=== PATIENT | female | born 1965 | race Hispanic/Latino ===

== ENCOUNTER → 2017-06-22 | Day surgery (SDC) | payer OTHER ==
[~2017-06-22] VITALS: Ht 157.5 cm; Wt 62.6 kg
[~2017-06-22] MED LIST: Sodium Chloride LOK Flush 10 mL Syringe IV PRN; fentaNYL-PF 50 mCg/mL 2 mL Inj IVPUSH PRN
[2017-06-22 07:39] VITALS: BP 126/91; PULSE 85; RESP 16; O2SAT 98
[2017-06-22] MEDS: 0.9% Sodium Chloride 1,000 ML IV SCH ×3 (07:40→08:22)
[2017-06-22 08:26] VITALS: BP 97/59; PULSE 68; O2SAT 97
[2017-06-22 08:40] VITALS: BP 93/57; PULSE 75; O2SAT 98
[2017-06-22 08:48] VITALS: BP 95/60; PULSE 68; RESP 14; O2SAT 99
--- NOTE | 2017-06-22 10:34 | ENDO ---
[address] [address] ENDOSCOPY PROCEDURE PATIENT: ALBERTO BONILLA V : 1965 MR#: [id number] ADMIT: 06/22/2017 JOB ID: [id number] DATE OF SERVICE: 06/22/2017 OPERATION: Colonoscopy with hot snare polypectomy. PREOPERATIVE DIAGNOSIS(ES): Rectal bleeding. POSTOPERATIVE DIAGNOSIS(ES): 1. Small internal hemorrhoids. 2. There were seven total polyps seen in the ascending colon, largest size 1 cm, all removed by hot and cold snare polypectomy. Polyps ranged from approximately 4 mm to 1 cm. ANESTHESIA: 1. Fentanyl 100 mcg. 2. Versed 5 mg IV administered. COMPLICATIONS: None. BLOOD LOSS: Minimal. DESCRIPTION OF PROCEDURE: After risks and benefits were explained to the patient, informed consent was obtained. After anesthesia administered, colonoscope was inserted per rectum to the terminal ileum. Mucosa carefully examined. Prep of the patient was excellent. After the procedure was done, the scope was withdrawn the procedure terminated. FINDINGS: Upon inspection of the anus, no masses, hemorrhoids, ulcers, fissures that were seen throughout the entire examination. There were seven polyps seen in the ascending colon ranging from 4 mm to 1 cm size, all removed by hot and cold snare polypectomy. There was no bleeding that was seen after the polypectomies. No other polyps were seen. Retroflexion showed small internal hemorrhoids. IMPRESSION: 1. Small internal hemorrhoids. 2. Seven polyps seen in the ascending colon, largest polyps ranging from 4 mm to 1 cm size, removed by hot and cold snare polypectomy. RECOMMENDATIONS: 1. Await pathology results. 2. Repeat colonoscopy in one year.
--- NOTE | 2017-06-26 12:51 | PATH ---
SURGICAL PATHOLOGY Attending Physician:Antonio Hood MD CASE STATUS: Signed Out PATIENT NAME: ALBERTO BONILLA V. PID: [id number] : 1965 DATE COLLECTED:06/22/2017 21:17 SPECIMEN: Colon, Polyp CLINICAL HISTORY: 1). ASCENDING COLON POLYPS X7 FINAL DIAGNOSIS: Ascending Colon, Polyps, Biopsies: Tubular adenomas, four fragments. ICD10: D12.2 GROSS DESCRIPTION: The specimen is received in one formalin filled container labeled with the patient's name, sublabeled "ascending colon polyps" and consists of 3 portions of tissue which aggregate to 0.6 x 0.6 x 0.5 CM. The specimen is entirely submitted in one cassette. 06/22/2017DC ICD-9 CODES: CPT CODES: 1: 32150 Electronically Signed Out Taina Nicholson MD [facility] Pathology [facility] [place], [place] [address] Technical component performed at [facility], [address] [place] [address] Ave[address], [address]
== END | disposition home or self-care (01) ==
LOC: END 01:10
PROVIDERS: ATTEND Internal Medicine Gastroenterology
DX: D12.2 Benign neoplasm of ascending colon (principal); K64.8 Other hemorrhoids; K62.5 Hemorrhage of anus and rectum; I10 Essential (primary) hypertension; G47.33 Obstructive sleep apnea (adult) (pediatric); J30.9 Allergic rhinitis, unspecified
CPT/HCPCS: 45385; G0500; J2250; J3010; J7030